=== PATIENT | male | born 1960 | race Caucasian/White ===

== ENCOUNTER 2017-03-17 12:17 | Emergency (ER) | payer MEDICAID ==
[~2017-03-17] VITALS: Ht 182.9 cm; Wt 89.8 kg
--- NOTE | ~2017-03-17 | CR63 ---
[facility] A Service of [facility] & [facility] / [facility] RADIOLOGY TEXT RESULTS PATIENT: AKSHAT VALENTINE LOCATION: CFTX : 64 UNIT #: [id number] AGE: [address]: Lydia Jimenez APRN SEX: M ORDER DR: [id number] [facility] [address] [place], [place] [address] [id number] E MR#: [id number] #: [id number] NAME: AKSHAT VALENTINE. : 1960 SEX: M STUDY DATE/TIME: 03/17/2017 13:20 UNIT: [facility] ROOM: STUDY DESCRIPTION: CR Chest 2 View Attending Physician: Lydia Jimenez A.P.R.N. Ordering Physician: Alexy Og [facility] REPORT This report is preliminary unless electronic signature is present EXAM PA and lateral chest. INDICATION Productive cough and shortness of breath for 3 days. COMPARISON 06/28/2015 FINDINGS The lungs are well expanded. There is no acute infiltrate. Heart size normal. Tortuous aorta. The visualized osseous structures are unremarkable. IMPRESSION No active disease. Dictated by... Lee Johnston M.D. THIS IS AN ELECTRONICALLY VERIFIED REPORT Lee Johnston M.D. at 03/17/2017 5:30 PM LEONEL/pratik TD: 03/17/2017 15:14 JOB #: [id number] MEDICAL IMAGING REPORT Page 1 of 1 COPY
[~2017-03-17 12:17] MED LIST: BACTRIM DS TABL1 TAB PO; ROBITUSSIN S/F118 ML PO
== END 2017-03-17 15:03 | disposition home or self-care (01) ==
LOC: CFTX 12:17 → CED 12:17 → CFTX 14:07
DX: J20.9 Acute bronchitis, unspecified (principal); F32.9 Major depressive disorder, single episode, unspecified; F17.210 Nicotine dependence, cigarettes, uncomplicated
CPT/HCPCS: 71020; 87651; 94640; 99284